=== PATIENT | female | born 1985 | race Caucasian/White ===

== ENCOUNTER → 2019-04-25 | Outpatient (CLI) | payer OTHER ==
[2019-04-25 08:15] LABS: URINE APPEARANCE HAZY; URINE BILIRUBIN NEGATIVE (NEGATIVE); URINE BLOOD NEGATIVE (NEGATIVE); URINE COLOR YELLOW; URINE GLUCOSE NEGATIVE (NEGATIVE); URINE KETONE NEGATIVE (NEGATIVE); URINE LEUKOCYTE ESTERASE 2+ (NEGATIVE); URINE NITRATE NEGATIVE (NEGATIVE); URINE PROTEIN(semi-quant) TRACE mg/dL (NEGATIVE); URINE UROBILINOGEN NORMAL (NORMAL); URINE WBC 31-50 /hpf (0-3)
[2019-04-25 08:16] LABS: EOS # 0.2 (0.04-0.40); EOS % 1.8 % (1.0-5.0); HEMATOCRIT 36.5 % (37.0-47.0); HEMOGLOBIN 11.5 g/dL (12.5-16.0); LYMPH# 1.7 (1.50-4.00); MEAN CELL VOLUME 85 fl (78-100); MEAN CORPUSCULAR HEMOGLOBIN 27 pg (27-31); MEAN CORPUSCULAR HGB CONC 32 g/dL (33-37); MONO # 0.7 (0.20-0.80); NEU # 5.7 (1.40-6.50); PLATELET COUNT 239 K/mm3 (130-400); RED BLOOD COUNT 4.28 M/mm3 (4.10-5.30); RED CELL DISTRIBUTION WIDTH 14.3 % (11.5-14.5); URINE MUCUS PRESENT (NOT PRESENT); WHITE BLOOD COUNT 8.2 K/mm3 (4.8-10.8)
[2019-04-25 08:19] LABS: POTASSIUM 4.1 mmol/L (3.5-5.1)
[2019-04-25 08:21] LABS: TOTAL PROTEIN 7.7 g/dL (6.4-8.3)
[2019-04-25 08:23] LABS: TOTAL BILIRUBIN 0.4 mg/dL (0.2-1.2)
== END ==
LOC: LAB 07:49
PROVIDERS: Nurse Practitioner
DX: R10.11 Right upper quadrant pain (principal)

== ENCOUNTER 2019-05-12 17:11 | Emergency (ER) | payer OTHER ==
[~2019-05-12] VITALS: Ht 152.4 cm; Wt 77.3 kg
[2019-05-12] MEDS ORDERED: GOOD NEIGHBOR200 M3 PO (17:18)
[2019-05-12 17:33] LABS: EOS # 0.1 (0.04-0.40); HEMATOCRIT 38.4 % (37.0-47.0); HEMOGLOBIN 12.3 g/dL (12.5-16.0); LYMPH# 0.8 (1.50-4.00); MEAN CELL VOLUME 83 fl (78-100); MEAN CORPUSCULAR HEMOGLOBIN 27 pg (27-31); MEAN CORPUSCULAR HGB CONC 32 g/dL (33-37); MEAN PLATELET VOLUME 10.1 fl (7.4-10.4); MONO # 0.5 (0.20-0.80); NEU # 4.5 (1.40-6.50); PLATELET COUNT 253 K/mm3 (130-400); RED BLOOD COUNT 4.61 M/mm3 (4.10-5.30); RED CELL DISTRIBUTION WIDTH 14.1 % (11.5-14.5)
[2019-05-12 17:40] LABS: ALBUMIN 4.1 g/dL (3.5-5.0)
[2019-05-12 17:41] LABS: POTASSIUM 3.8 mmol/L (3.5-5.1)
[2019-05-12 17:42] LABS: CALCIUM 8.9 mg/dL (8.3-10.5)
[2019-05-12 17:43] LABS: TOTAL PROTEIN 8.7 g/dL (6.4-8.3)
[2019-05-12 17:45] LABS: TOTAL BILIRUBIN 2.7 mg/dL (0.2-1.2)
[2019-05-12 18:24] LABS: URINE APPEARANCE HAZY; URINE BILIRUBIN NEGATIVE (NEGATIVE); URINE BLOOD TRACE (NEGATIVE); URINE COLOR YELLOW; URINE GLUCOSE NEGATIVE (NEGATIVE); URINE KETONE NEGATIVE (NEGATIVE); URINE LEUKOCYTE ESTERASE 2+ (NEGATIVE); URINE NITRATE NEGATIVE (NEGATIVE); URINE PROTEIN(semi-quant) NEGATIVE (NEGATIVE); URINE UROBILINOGEN NORMAL (NORMAL); URINE WBC >50 /hpf (0-3)
[2019-05-12 20:10] VITALS: BP 150/107
== END 2019-05-12 20:10 | disposition short-term general hospital (02) ==
LOC: ED 17:11
PROVIDERS: Family Medicine
DX: K80.21 Calculus of gallbladder without cholecystitis with obstruction (principal); N39.0 Urinary tract infection, site not specified
CPT/HCPCS: A4216; J0696

== ENCOUNTER → 2019-12-13 | Emergency (ER) | payer OTHER ==
[~2019-12-13] VITALS: Ht 152.4 cm; Wt 77.1 kg
[~2019-12-13] MED LIST: CEPHALEXIN500 M2 PO; GOOD NEIGHBOR200 M3 PO
[2019-12-13 10:13] LABS: EOS % 0.5 % (1.0-5.0); HEMATOCRIT 39.3 % (37.0-47.0); HEMOGLOBIN 12.6 g/dL (12.5-16.0); LYMPH# 1.1 (1.50-4.00); MEAN CELL VOLUME 85 fl (78-100); MEAN CORPUSCULAR HEMOGLOBIN 27 pg (27-31); MEAN CORPUSCULAR HGB CONC 32 g/dL (33-37); MEAN PLATELET VOLUME 10.2 fl (7.4-10.4); MONO # 0.5 (0.20-0.80); NEU # 6.5 (1.40-6.50); PLATELET COUNT 239 K/mm3 (130-400); RED BLOOD COUNT 4.61 M/mm3 (4.10-5.30); RED CELL DISTRIBUTION WIDTH 13.7 % (11.5-14.5); WHITE BLOOD COUNT 8.1 K/mm3 (4.8-10.8)
[2019-12-13 10:23] LABS: POTASSIUM 4.2 mmol/L (3.5-5.1); SODIUM 137 mmol/L (136-145)
[2019-12-13 10:24] LABS: ALBUMIN 4.2 g/dL (3.5-5.0)
[2019-12-13 10:25] LABS: CALCIUM 9.2 mg/dL (8.3-10.5)
[2019-12-13 10:27] LABS: GLUCOSE 95 mg/dL (65-105); TOTAL PROTEIN 7.6 g/dL (6.4-8.3)
[2019-12-13 10:28] LABS: CARBON DIOXIDE 23 mmol/L (22-29); TOTAL BILIRUBIN 0.3 mg/dL (0.2-1.2)
[2019-12-13 10:32] LABS: AST-SGOT 17 U/L (5-34)
[2019-12-13 10:34] LABS: ALT/SGPT 21 U/L (0-55)
[2019-12-13 10:45] LABS: TROPONIN-I < 0.03 ng/mL (<0.030)
[2019-12-13 10:55] LABS: URINE COLOR YELLOW
[2019-12-13 10:56] LABS: URINE APPEARANCE CLEAR; URINE BILIRUBIN NEGATIVE (NEGATIVE); URINE BLOOD NEGATIVE (NEGATIVE); URINE GLUCOSE NEGATIVE (NEGATIVE); URINE KETONE NEGATIVE (NEGATIVE); URINE LEUKOCYTE ESTERASE TRACE (NEGATIVE); URINE MUCUS PRESENT (NOT PRESENT); URINE NITRATE NEGATIVE (NEGATIVE); URINE PROTEIN(semi-quant) TRACE mg/dL (NEGATIVE); URINE UROBILINOGEN NORMAL (NORMAL)
[2019-12-13 11:18] VITALS: BP 125/81
== END ==
LOC: ED 08:53
PROVIDERS: Physician Assistant
DX: N39.0 Urinary tract infection, site not specified (principal); Z79.1 Long term (current) use of non-steroidal anti-inflammatories (NSAID)